=== PATIENT | male | born 1985 | race Hispanic/Latino ===

== ENCOUNTER 2024-02-09 20:55 | Inpatient (IN) | payer SELFPAY ==
[~2024-02-09 20:55] MED LIST: Iopamidol-370 76% 500 ML MDV (1 ML CHARGE) ONE
[2024-02-09] MEDS ORDERED: Morphine 4 MG/ML VIAL ONE (21:20)
[2024-02-09] MEDS ORDERED: Ketorolac Tromethamine 30 MG (1 mL) VIAL ONE (21:20)
[2024-02-09] MEDS ORDERED: Ondansetron PF 4 MG/2 ML Vial ONE (21:20)
[2024-02-09 21:32] LABS: #Basophils 0.05 10x3/uL (0.0-0.2); %Basophils 0.7 % (0.0-1.0); %Eosinophils 1.9 % (0.0-10.0); %Lymphocytes 20.4 % (21.0-51.0); %Monocytes 12.3 % (0.0-10.0); %Neutrophils 64.4 % (42.0-75.0); Hematocrit 33.4 % (42.0-52.0); Hemoglobin 11.3 g/dL (14.0-18.0); Mean Corpuscular HGB CONC 33.8 g/dL (32.0-36.0); Mean Corpuscular Volume 82.7 fL (78.0-98.0); Mean Platelet Volume 8.8 fL (7.4-10.4); Platelet Count 360 10x3/uL (130-400); RBC Distribution Width 14.2 % (11.5-14.5); Red Blood Cell (RBC) Count 4.04 mill/uL (4.70-6.10)
[2024-02-09 21:45] LABS: INR-International Normal Ratio 1.1; Prothrombin Time 14.2 sec (12.0-14.7)
[2024-02-09 21:46] LABS: PTT 32.5 sec (22.9-36.1)
[2024-02-09 21:50] LABS: ALT (SGPT) 12 U/L (8-55); AST (SGOT) 17 U/L (5-34); Albumin 3.3 g/dL (3.5-5.0); Alkaline Phosphatase 65 U/L (40-110); Anion Gap 15 mmol/L (10-20); BUN (Urea Nitrogen) 16 mg/dL (8.9-20.6); Bilirubin, Total 1.3 mg/dL (0.2-1.2); Calc. Creatinine Clearance 0 mL/min (70-130); Calcium 8.6 mg/dL (7.8-10.44); Carbon Dioxide 19 mmol/L (22-29); Chloride 99 mmol/L (98-107); Estimated GFR 96; Globulin 4.5 g/dL (2.4-3.5); Glucose 129 mg/dL (70-105); Lipase 15 U/L (8-78); Potassium 4.3 mmol/L (3.5-5.1); Protein, Total 7.8 g/dL (6.0-8.3); Sodium 129 mmol/L (136-145)
[2024-02-09 21:54] LABS: Troponin I Less than 0.010 ng/mL (< 0.028)
[2024-02-09 22:47] LABS: Actual Bicarbonate (HCO3v) 21.3 mEq/L (22-28); Base Excess -0.8 mEq/L (-2.0 to +3.0); Calcium, Ionized (venous) 1.07 mmol/L (1.16-1.32); Chloride (VBG) 95 mmol/L (98-106); Hematocrit-VBG 36 % (42.0-52.0); Hemoglobin (Hb) 12.2 g/dL (13.2-17.3); Potassium (VBG) 4.11 mmol/L (3.70-5.30); Sodium 130 mmol/L (133-146)
[2024-02-09 23:13] LABS: Amphetamine Detected (NotDetected); Barbiturates Screen Not Detected (NotDetected); Benzodiazepine Screen Not Detected (NotDetected); Cocaine Metabolite Screen Not Detected (NotDetected); Methadone Not Detected (NotDetected); Methamphetamine Detected (NotDetected); Opiate Screen Detected (NotDetected); Oxycodone Screen Not Detected (NotDetected); Phencyclidine (PCP) Not Detected (NotDetected); THC/Cannabinoid Screen Not Detected (NotDetected); Tricyclic Screen Not Detected (NotDetected)
[2024-02-09 23:17] LABS: Bilirubin Negative (Negative); Blood, Urine 2+ (Negative); CAUTI Indications for Culture Alt mental st,lethar; Clarity Clear (Clear); Glucose, Urine (Dipstick) Normal (Negative); Ketone, Urine Negative (Negative); Leukocyte Negative Leu/uL (Negative); Nitrite Negative (Negative); Protein, Urine (Dipstick) 70 mg/dL (Neg-Trace); RBC/HPF 21-50 HPF (0-3); Squamous Epithelial None Seen HPF (0-3); Urobilinogen Normal mg/dL (Less than 2)
[2024-02-09 23:19] LABS: Bacteria/HPF 1+ HPF (None Seen); Urine Culture Reflex No No
[2024-02-10] MEDS ORDERED: Cefepime 2 GM VIAL ONE (00:12)
[2024-02-10] MEDS ORDERED: Sodium Chloride 0.9% 100 ML ONE (00:13)
[2024-02-10] MEDS ORDERED: Vancomycin 1 GM/200 ML (FROZEN) BAG ONE (00:13)
[2024-02-10 00:37] LABS: CK (CPK) 60 U/L (30-200); Magnesium 1.5 mg/dL (1.6-2.6); Phosphorus 2.9 mg/dL (2.3-4.7)
[2024-02-10 01:01] LABS: Acetaminophen Less than 10 mcg/mL (Less than 10); Alcohol Less than 10.0 mg/dL (Less than 10); Salicylate Less than 8.0 mg/dL (Less than 8.0)
[2024-02-10] MEDS ORDERED: Acetaminophen 650 MG Suppository PR PRN (02:49)
[2024-02-10] MEDS ORDERED: Acetaminophen 325 MG TAB PO PRN (02:49)
[2024-02-10] MEDS ORDERED: Albuterol 200 PUFF (6.7GM INHALER) INH PRN (03:02)
[2024-02-10 03:54] LABS: #Basophils 0.03 10x3/uL (0.0-0.2); %Basophils 0.4 % (0.0-1.0); %Eosinophils 2.7 % (0.0-10.0); %Lymphocytes 26.6 % (21.0-51.0); %Monocytes 15.9 % (0.0-10.0); Hematocrit 30.9 % (42.0-52.0); Mean Corpuscular HGB CONC 32.4 g/dL (32.0-36.0); Mean Corpuscular Hemoglobin 27.5 pg (27.0-31.0); Mean Corpuscular Volume 84.9 fL (78.0-98.0); Mean Platelet Volume 9.1 fL (7.4-10.4); Platelet Count 328 10x3/uL (130-400); RBC Distribution Width 14.4 % (11.5-14.5); Red Blood Cell (RBC) Count 3.64 mill/uL (4.70-6.10)
[2024-02-10 04:11] LABS: Anion Gap 14 mmol/L (10-20); BUN (Urea Nitrogen) 18 mg/dL (8.9-20.6); Calc. Creatinine Clearance 0 mL/min (70-130); Calcium 8.8 mg/dL (7.8-10.44); Carbon Dioxide 23 mmol/L (22-29); Chloride 97 mmol/L (98-107); Estimated GFR 88; Glucose 102 mg/dL (70-105); Potassium 4.6 mmol/L (3.5-5.1); Sodium 129 mmol/L (136-145)
[2024-02-10 04:42] VITALS: BMI 25.6
[2024-02-10] MEDS: Lactated Ringer's 1,000 ML IV SCH (04:50)
[2024-02-10 06:07] LABS: Influenza A by NAA Not Detected (NotDetected); Influenza B by NAA Not Detected (NotDetected); SARS-CoV-2 NAA Rapid Test Not Detected (NotDetected)
[2024-02-10] MEDS: Vancomycin 1 GM in Premix 1 BAG IVPB SCH (06:18)
[2024-02-10] MEDS: Ondansetron PF 4 MG/2 ML Vial IVP PRN (06:21)
[2024-02-10] MEDS ORDERED: Cefepime 1 GM in Sodium Chloride 0.9% 100 ML IVPB SCH (09:00)
[2024-02-10] MEDS ORDERED: Vancomycin 1 GM in Premix 1 BAG IVPB SCH (09:00)
[2024-02-10] MEDS: Cefepime 2 GM in Sodium Chloride 0.9% 100 ML IVPB SCH (09:53)
[2024-02-10] MEDS: Famotidine/PF 20 mg/2ml Vial SLOW IVP SCH (09:56)
[2024-02-10] MEDS: Famotidine 20 MG TAB PO SCH (10:04)
[2024-02-10] MEDS ORDERED: Magnevist 469MG/ML 20 ML VIAL ONE ×2 (10:48)
[2024-02-10] MEDS: Vancomycin (BATCH) 1.25 GM in Premix 1 BAG IVPB SCH (12:29)
[2024-02-10] MEDS: Acetaminophen/Codeine 30-300mg Tablet PO PRN (12:31)
[2024-02-10 12:39] VITALS: BMI 25.6
[2024-02-10] MEDS: Sodium Chloride 0.9% 1,000 ML IV SCH (15:37)
[2024-02-10] MEDS: Promethazine HCl 25 MG in Sodium Chloride 0.9% 50 ML IVPB PRN (16:16)
[2024-02-10] MEDS: Ondansetron ODT 4 MG TAB PO PRN (22:48)
[2024-02-11 06:13] LABS: Vancomycin, Random 29.3 ug/mL (See Comment)
[2024-02-11 08:03] VITALS: BP 161/88
[2024-02-11] MEDS: Pantoprazole DR 40 MG TAB PO SCH (08:28)
[2024-02-11 11:45] VITALS: TEMP 98.1
[2024-02-11] MEDS: Vancomycin 1 GM in Premix 1 BAG IVPB SCH (12:05)
== END 2024-02-11 14:20 | disposition home or self-care (01) | DRG 864 ==
LOC: ERS 20:55 → SURG B 02-10 01:36 → OBSVTOIN 02-10 12:51
PROVIDERS: ADMIT Student in an Organized Health Care Education/Training Program; ATTEND Internal Medicine
DX: R50.9 Fever, unspecified (principal); E87.1 Hypo-osmolality and hyponatremia; R33.9 Retention of urine, unspecified; F15.10 Other stimulant abuse, uncomplicated; J45.909 Unspecified asthma, uncomplicated; R55 Syncope and collapse; E11.9 Type 2 diabetes mellitus without complications; M54.50 Low back pain, unspecified; Z79.52 Long term (current) use of systemic steroids; Z79.899 Other long term (current) drug therapy
CPT/HCPCS: 36415; 36416; 51701; 70450; 71045; 72125; 72157; 72158; 74177; 80048; 80053; 80202; 80306; 80307; 81001; 82010; 82550; 82805; 83605; 83690; 83735; 84100; 84443; 84484; 85025; 85610; 85730; 86141; 87040; 93005; 96374; 96375; 96376; A9579; G0378; J0692; J1885; J2272; J2405; J2550; J3370; J3370-JW; J3490; J7030; J7120; Q0162; Q9967